=== PATIENT | female | born 1970 | race Caucasian/White ===

== ENCOUNTER → 2017-09-14 15:14 | Outpatient (CLI) | payer BC, SELFPAY ==
[2017-09-14 15:52] LABS: Basophils % 0.4 % (0.1-2.0); Eosinophils # 0.3 K/mm3 (0.0-0.4); Eosinophils % 3.3 % (0.1-12.0); Hematocrit 38.1 % (37.0-47.0); Hemoglobin 13.1 g/dL (12.2-16.2); Lymphocytes # 1.7 K/mm3 (0.7-4.5); Lymphocytes % 21.7 K/mm3 (10-50); Mean Corpuscular HGB Conc 34.4 g/dL (31.8-35.4); Mean Corpuscular Hemoglobin 29.1 pg (27.0-31.2); Mean Corpuscular Volume 84.6 fl (81-99); Mean Platelet Volume 7.5 fl (7.4-10.4); Monocytes # 0.6 K/mm3 (0.1-1.0); Monocytes % 7.6 % (1.7-9.3); Neutrophils # 5.1 K/mm3 (1.8-7.8); Platelet Count 299 K/mm3 (142-424); Red Cell Distribution Width 15.9 % (11.5-17.5); White Blood Count 7.7 K/mm3 (4.8-10.8)
[2017-09-14 16:49] LABS: Alanine Aminotransferase 71 U/L (12-78); Albumin Level 3.8 gm/dL (3.4-5.0); Albumin/Globulin Ratio 1.2 (1.1-1.8); Alkaline Phosphatase 60 U/L (46-116); Anion Gap 12.2 mEq/L (5-15); Aspartate Amino Transferase 33 U/L (15-37); Bilirubin,Total 0.3 mg/dL (0.2-1.0); Blood Urea Nitrogen 12 mg/dL (7-18); Calcium 9.3 mg/dL (8.5-10.1); Carbon Dioxide 30 mmol/L (21.0-32.0); Chloride 102 mmol/L (98-107); Creatinine,Serum 0.78 mg/dL (0.55-1.02); Estimated Glomerular Filt Rate 79 ml/min (>60); Ferritin 33 ng/mL (8-388); GFR (African American) 96 ML/MIN (>60); Globulin 3.3 gm/dl (1.3-3.2); Glucose 115 mg/dL (74-106); Potassium 4.2 mmoL/L (3.5-5.1); Sodium 140 mmol/L (136-145); Total Protein,Serum 7.1 gm/dL (6.4-8.2)
[2017-09-16 07:17] LABS: Hep A Ab, IgM Negative (Negative); Hepatitis B Core Antibody IgM Negative (Negative); Hepatitis B Surface Antigen Negative (Negative); Iron 42 ug/dL (27-159); Iron Saturation 12 % (15-55); UIBC 310 ug/dL (131-425)
[2017-09-16 08:28] LABS: Alpha-1-Antitrypsin 142 mg/dL (90-200)
[2017-09-16 15:23] LABS: Ceruloplasmin 26.6 mg/dL (19.0-39.0); Deamidated Gliadin Abs, IgA 5 units (0-19); Deamidated Gliadin Abs, IgG 3 units (0-19); Endomysial IgA Antibody Negative (Negative); Hepatitis C Antibody 0.1 s/co ratio (0.0-0.9); Tissue Transglutaminase IgA Ab <2 U/mL (0-3); Tissue Transglutaminase IgG Ab <2 U/mL (0-5)
[2017-09-16 17:25] LABS: Actin (Smooth Muscle) Antibody 3 Units (0-19); Antinuclear Antibodies, IFA Negative (.); Liver-Kidney Microsomal Ab <1.0 Units (0.0-20.0); Mitochondrial (M2) Antibody <20.0 Units (0.0-20.0)
[2017-09-20 06:23] LABS: ALT (SGPT) P5P 57 IU/L (0-40); Alpha 2-Macroglobulins, Qn 302 mg/dL (110-276); Apolipoprotein A-1 117 mg/dL (116-209); Bilirubin, Total 0.1 mg/dL (0.0-1.2); Fibrosis Score 0.25 (0.00-0.21); Fibrosis Stage F0-F1 (.); GGT 70 IU/L (0-60); Haptoglobin 90 mg/dL (34-200); Necroinflammat Activity Grade A1-Minimal activity (.); Necroinflammat Activity Score 0.32 (0.00-0.17)
[2017-09-21 08:11] LABS: Reticulin IgA Antibody Negative titer (Neg:<1:2.5)
== END ==
PROVIDERS: Visit Provider Nurse Practitioner Acute Care
DX: R94.5 Abnormal results of liver function studies (principal); R10.11 Right upper quadrant pain
CPT/HCPCS: 36415; 80053; 80074; 82103; 82104; 82390; 82728; 83516; 83540; 83550; 85025; 86038; 86255; 86256; 86376

== ENCOUNTER → 2018-02-13 14:34 | Outpatient (POV) | payer BC, SELFPAY | PROVIDERS: Visit Provider Nurse Practitioner Acute Care | DX: Z00.00 Encounter for general adult medical examination without abnormal findings (principal) ==

== ENCOUNTER → 2018-10-23 09:10 | Outpatient (CLI) | payer SELFPAY ==
[2018-10-23 10:29] LABS: Basophils % 0.4 % (0.1-2.0); Eosinophils # 0.2 K/mm3 (0.0-0.4); Eosinophils % 2.2 % (0.1-12.0); Hemoglobin 13.2 g/dL (12.2-16.2); Lymphocytes # 1.2 K/mm3 (0.7-4.5); Lymphocytes % 12.4 % (10-50); Mean Corpuscular HGB Conc 32.2 g/dL (31.8-35.4); Mean Corpuscular Hemoglobin 28.5 pg (27.0-31.2); Mean Corpuscular Volume 88.5 fl (81-99); Mean Platelet Volume 6.9 fl (7.4-10.4); Monocytes # 0.6 K/mm3 (0.1-1.0); Monocytes % 6.3 % (1.7-9.3); Neutrophils # 7.4 K/mm3 (1.8-7.8); Neutrophils % 78.7 % (37.0-80.0); Platelet Count 463 K/mm3 (142-424); Red Blood Count 4.63 M/mm3 (4.20-5.40); Red Cell Distribution Width 14.4 % (11.5-17.5); White Blood Count 9.5 K/mm3 (4.8-10.8)
[2018-10-23 11:27] LABS: Alanine Aminotransferase 46 U/L (12-78); Albumin Level 2.6 gm/dL (3.4-5.0); Albumin/Globulin Ratio 0.6 (1.1-1.8); Alkaline Phosphatase 125 U/L (46-116); Anion Gap 11.3 mEq/L (5-15); Aspartate Amino Transferase 33 U/L (15-37); Bilirubin,Total 0.4 mg/dL (0.2-1.0); Blood Urea Nitrogen 5 mg/dL (7-18); Calcium 9.2 mg/dL (8.5-10.1); Carbon Dioxide 32 mmol/L (21.0-32.0); Chloride 99 mmol/L (98-107); Chol/HDL Ratio 5.2 (1-3.5); Cholesterol 152 mg/dL (140-200); Creatinine,Serum 0.67 mg/dL (0.55-1.02); Estimated Glomerular Filt Rate 94 ml/min (>60); GFR (African American) 114 ML/MIN (>60); Globulin 4.1 gm/dl (1.3-3.2); Glucose 167 mg/dL (74-106); HDL Cholesterol 29 mg/dL (29-89); LDL Cholesterol 77 mg/dL (0-130); Potassium 4.3 mmoL/L (3.5-5.1); Sodium 138 mmol/L (136-145); Total Protein,Serum 6.7 gm/dL (6.4-8.2); Triglycerides 232 mg/dL (30-200); VLDL Cholesterol 46 mg/dL (0-40)
[2018-10-23 11:40] LABS: C-Reactive Protein 7.4 mg/dL (0.0-0.9)
[2018-10-23 13:11] LABS: Erythrocyte Sedimentation Rate 38 mm/hr (0-20)
[2018-10-24 06:51] LABS: Vitamin D 25 Hydroxy 19.6 ng/mL (30.0-100.0)
== END ==
PROVIDERS: Internal Medicine Infectious Disease; Visit Provider Internal Medicine Rheumatology
DX: E55.9 Vitamin D deficiency, unspecified (principal); M06.9 Rheumatoid arthritis, unspecified; Z79.899 Other long term (current) drug therapy
CPT/HCPCS: 36415; 80053; 80061; 82652; 85025; 85651; 86140

== ENCOUNTER → 2018-10-30 11:55 | Outpatient (CLI) | payer SELFPAY ==
[2018-10-30 12:06] LABS: Basophils # 0.1 K/mm3 (0-0.2); Basophils % 1.3 % (0.1-2.0); Eosinophils # 0.2 K/mm3 (0.0-0.4); Hematocrit 40.6 % (37.0-47.0); Hemoglobin 13.1 g/dL (12.2-16.2); Lymphocytes # 1.3 K/mm3 (0.7-4.5); Mean Corpuscular HGB Conc 32.3 g/dL (31.8-35.4); Mean Corpuscular Hemoglobin 28.9 pg (27.0-31.2); Mean Corpuscular Volume 89.8 fl (81-99); Mean Platelet Volume 8.6 fl (7.4-10.4); Monocytes # 0.3 K/mm3 (0.1-1.0); Neutrophils # 4.3 K/mm3 (1.8-7.8); Neutrophils % 69.7 % (37.0-80.0); Platelet Count 392 K/mm3 (142-424); Red Blood Count 4.52 M/mm3 (4.20-5.40); Red Cell Distribution Width 14.6 % (11.5-17.5); White Blood Count 6.2 K/mm3 (4.8-10.8)
[2018-10-30 12:21] LABS: Alanine Aminotransferase 29 U/L (12-78); Albumin/Globulin Ratio 0.7 (1.1-1.8); Alkaline Phosphatase 99 U/L (46-116); Anion Gap 13.2 mEq/L (5-15); Aspartate Amino Transferase 28 U/L (15-37); Bilirubin,Total 0.3 mg/dL (0.2-1.0); Blood Urea Nitrogen 11 mg/dL (7-18); C-Reactive Protein 2.9 mg/dL (0.0-0.9); Calcium 9.3 mg/dL (8.5-10.1); Carbon Dioxide 29 mmol/L (21.0-32.0); Chloride 100 mmol/L (98-107); Creatinine,Serum 0.88 mg/dL (0.55-1.02); Estimated Glomerular Filt Rate 69 ml/min (>60); GFR (African American) 83 ML/MIN (>60); Globulin 4.4 gm/dl (1.3-3.2); Glucose 223 mg/dL (74-106); Potassium 4.2 mmoL/L (3.5-5.1); Sodium 138 mmol/L (136-145); Total Protein,Serum 7.4 gm/dL (6.4-8.2)
[2018-10-30 12:31] LABS: Erythrocyte Sedimentation Rate 69 mm/hr (0-20)
== END ==
PROVIDERS: Visit Provider Internal Medicine Infectious Disease
DX: N10 Acute pyelonephritis (principal); N13.6 Pyonephrosis; B96.29 Other Escherichia coli [E. coli] as the cause of diseases classified elsewhere; B95.1 Streptococcus, group B, as the cause of diseases classified elsewhere; N17.8 Other acute kidney failure; R94.5 Abnormal results of liver function studies; R19.7 Diarrhea, unspecified; M06.9 Rheumatoid arthritis, unspecified; Z92.25 Personal history of immunosuppression therapy
CPT/HCPCS: 36415; 80053; 85025; 85651; 86140

== ENCOUNTER 2020-11-15 16:11 | Emergency (ER) | payer OTHER, SELFPAY ==
[2020-11-15 16:19] VITALS: BP 137/86; PULSE 105; RESP 20; TEMP 36.8; O2SAT 93; BMI 30.7
--- NOTE | 2020-11-15 16:26 | HMH.EDGENADL ---
ED Disposition Clinical Impression: Buerger's disease Rheumatoid arthritis Qualifiers: Rheumatoid arthritis location: multiple sites Rheumatoid factor presence: unspecified presence Qualified Code(s): M06.9 - Rheumatoid arthritis, unspecified Disposition: Home, Self-Care Condition on Discharge: Fair Additional Instructions: Prednisone as prescribed. [place] as needed for pain. 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 Additional instructions for CONTROLLED SUBSTANCES: You have been prescribed a medication that is a controlled substance. Controlled substances include pain medications known as opiates and sedative nerve medications known as benzodiazepines. Tramadol, fioricet, and gabapentin are also controlled substances. Some common opiates include: Codeine (such as Tylenol #3) Hydrocodone (Vicodin, Lortab, Lorcet, [place]) Oxycodone (Percocet, Percodan, Oxycodone, Oxy IR) Some common benzodiazepines include: Diazepam (Valium) Lorazepam (Ativan) Alprazolam (Xanax) Clonazepam (Klonopin) Oxazepam (Serax) All of these controlled substances are highly addictive and frequently abused. Misuse can and frequently does lead to addiction as well as overdose and . Medication should be stored in a locked cabinet or other secure storage unit. Do not store the medication in a motor vehicle. Short term supplies, 3 days or less, are prescribed because of the highly addictive nature of the medication. Any of the controlled substance medication NOT taken should be disposed of properly and NOT SAVED. The recommended method of disposing of unused medications is: Place the medicines in a sealable plastic bag. If the medicine is a solid, crush it or add water to dissolve it. Add something undesirable (cat litter, coffee grounds, etc.) Dispose of sealed bag in household trash Do not flush or pour unused medicines down a sink or drain. Controlled substances should not be shared, given away or sold. Because of the addictive nature and frequent abuse, these medications are sometimes stolen. These medications should be kept in a safe place where they cannot be stolen. Do not keep them in your car or purse. Lost or stolen prescriptions for controlled substances WILL NOT BE REFILLED in this emergency department, regardless of whether a police report was filed. Prescriptions: Hydrocod/Acet 5/325 mg [[place] 5/325mg tablet] 1 tab PO Q6HP PRN #10 tab PRN Reason: Pain Transmission Status: Sent to [facility] # predniSONE [Prednisone 20mg Tab] 60 mg PO DAILY #15 tab Transmission Status: Pending to [facility] # Referrals: Provider,Referral, [Referring] - - Critical Care Critical Care Time: No Attestation: On 11/15/20, the high probability of a clinically significant, sudden or life threatening deterioration of the following system(s) required my full and direct attention, intervention and personal management. The time I documented below is in addition to time spent performing reported procedures but includes the following listed in this critical care notation. Medical Decision Making - Donato Inquiry Pt receiving controlled substance: Yes Donato was queried for this patient: Yes Risks and benefits of using a controlled substance: were not discussed with pt by me Vital Signs: 11/15/20 16:19 Temperature 98.3 F Temperature Source Oral Pulse Rate [Left Radial] 105 H Respiratory Rate 20 Blood Pressure [Right Arm] 137/86 Blood Pressure Mean [Right Arm] 103 Blood Pressure Source [Right Arm] Automatic Cuff Blood Pressure Position [Right Arm] Supine 02 Sat by Pulse Oximetry 93 L Oxygen Delivery Method Room Air - Lab Data Lab Results 11/15/20 16:50: WBC 7.3, RBC 4.68, Hgb 13.9, Hct 41.1, MCV 87.6, MCH 29.7, MCHC 33.9, RDW 15.8, Plt Count 425 H, MPV 8.2, Neut % (Auto) 82.1 H, Lymph % (Auto) 9.4 L, [place] % (Auto) 5.8, Eos % (Auto) 1.5, Baso % (Auto) 1
[2020-11-15 16:59] LABS: Basophils # 0.1 K/mm3 (0-0.2); Basophils % 1.2 % (0.1-2.0); Eosinophils # 0.1 K/mm3 (0.0-0.4); Eosinophils % 1.5 % (0.1-12.0); Hematocrit 41.1 % (37.0-47.0); Hemoglobin 13.9 g/dL (12.2-16.2); Lymphocytes # 0.7 K/mm3 (0.7-4.5); Lymphocytes % 9.4 % (10-50); Mean Corpuscular HGB Conc 33.9 g/dL (31.8-35.4); Mean Corpuscular Hemoglobin 29.7 pg (27.0-31.2); Mean Corpuscular Volume 87.6 fl (81-99); Mean Platelet Volume 8.2 fl (7.4-10.4); Monocytes # 0.4 K/mm3 (0.1-1.0); Monocytes % 5.8 % (1.7-9.3); Neutrophils % 82.1 % (37.0-80.0); Platelet Count 425 K/mm3 (142-424); Red Blood Count 4.68 M/mm3 (4.20-5.40); Red Cell Distribution Width 15.8 % (11.5-17.5); White Blood Count 7.3 K/mm3 (4.8-10.8)
[2020-11-15 17:10] LABS: Alanine Aminotransferase 21 U/L (12-78); Albumin Level 3.3 g/dl (3.5-5.0); Albumin/Globulin Ratio 1.1 (1.1-1.8); Alkaline Phosphatase 76 U/L (38-126); Anion Gap 9.7 mEq/L (5-15); Aspartate Amino Transferase 30 U/L (14-36); Bilirubin,Total 0.6 mg/dl (0.2-1.3); Blood Urea Nitrogen 13 mg/dl (7-17); Calcium 8.9 mg/dl (8.4-10.2); Carbon Dioxide 29 mmol/L (22.0-30.0); Chloride 98 mmol/L (98-107); Creatinine Clearance Estimated 195 mL/min (50-200); Estimated Glomerular Filt Rate 131 ml/min (>60); GFR (African American) 158 ML/MIN (>60); Globulin 2.9 g/dL (1.3-3.2); Glucose 298 mg/dl (74-100); Potassium 3.7 mmoL/L (3.5-5.1); Sodium 133 mmol/L (136-145); Total Protein,Serum 6.2 g/dl (6.3-8.2)
[2020-11-15 17:11] VITALS: BP 175/93; PULSE 88; RESP 15; O2SAT 97
[2020-11-15 17:15] LABS: C-Reactive Protein 88.8 mg/L (0-4)
[2020-11-15 17:20] LABS: Erythrocyte Sedimentation Rate 25 mm/hr (0-20)
[2020-11-15 17:30] VITALS: BP 180/97; PULSE 92; RESP 13; O2SAT 97
[2020-11-15 17:48] LABS: Coronavirus 19, PCR Not Detected (NotDetected); Influenza A, PCR Not Detected (NotDetected); Influenza B, PCR Not Detected (NotDetected)
[2020-11-15 18:00] VITALS: BP 179/98; PULSE 94; RESP 15; O2SAT 98
[2020-11-15 18:00] LABS: Strep Scrn Group A (Rapid) Negative (Negative)
[2020-11-15 18:30] VITALS: BP 174/94; PULSE 91; RESP 16; O2SAT 97
[2020-11-15 18:54] VITALS: BP 161/95; PULSE 72; RESP 18; TEMP 36.4; O2SAT 98
== END 2020-11-15 18:57 | disposition home or self-care (01) ==
PROVIDERS: Emergency Provider Emergency Medicine; PCP Family Medicine
DX: I73.1 Thromboangiitis obliterans [Buerger's disease] (principal); M06.9 Rheumatoid arthritis, unspecified; L97.329 Non-pressure chronic ulcer of left ankle with unspecified severity; L97.319 Non-pressure chronic ulcer of right ankle with unspecified severity
CPT/HCPCS: 80053; 85025; 85651; 86140; 87430; 96375; 96376; 99283; C9803; J2405; U0003; U0005

== ENCOUNTER 2020-11-24 12:12 | Emergency (ER) | payer OTHER, SELFPAY ==
[2020-11-24 12:12] VITALS: BP 147/92; PULSE 100; RESP 20; TEMP 36.6; O2SAT 97; BMI 30.7
--- NOTE | 2020-11-24 12:20 | HMH.EDGENADL ---
ED Disposition Clinical Impression: Buerger disease Diabetic foot ulcer Qualifiers: Diabetic foot ulcer location: midfoot Diabetes mellitus type: type 2 Laterality: unspecified laterality Non-pressure ulcer stage: with fat layer exposed Qualified Code(s): E11.621 - Type 2 diabetes mellitus with foot ulcer Disposition: Home, Self-Care Condition on Discharge: Good Additional Instructions: It is important to follow-up with your primary care physician, as well as to follow-up with your vascular doctor and your rheumatologic doctor. Frequent deep the wound well wrapped, please continue to monitor it and return to the emergency department or follow-up with your primary care physician if it continues to worsen. Prescriptions: Gabapentin [Gabapentin 100mg Cap] 300 mg PO BID 14 Days #84 cap Transmission Status: Received by [facility] #[id number] predniSONE [Prednisone 20mg Tab] 20 mg PO DAILY 7 Days #7 tab Transmission Status: Received by [facility] #[id number] Referrals: Provider,Referral, [Referring] - - Critical Care Critical Care Time: No Attestation: On 11/24/20, the high probability of a clinically significant, sudden or life threatening deterioration of the following system(s) required my full and direct attention, intervention and personal management. The time I documented below is in addition to time spent performing reported procedures but includes the following listed in this critical care notation. Medical Decision Making - Medical Records Medical records reviewed: Yes: I reviewed the patient's medical records. - Donato Inquiry Pt receiving controlled substance: Yes Donato was queried for this patient: Yes Risks and benefits of using a controlled substance: were discussed with pt by me Vital Signs: 11/24/20 12:12 11/24/20 13:19 11/24/20 13:30 Temperature 97.8 F Temperature Source Oral Pulse Rate 88 102 H Pulse Rate [Right Radial] 100 H Respiratory Rate 20 Blood Pressure 127/66 134/85 Blood Pressure [Right Arm] 147/92 H Blood Pressure Mean Blood Pressure Mean [Right Arm] 110 Blood Pressure Source [Right Arm] Automatic Cuff Blood Pressure Position [Right Arm] Sitting 02 Sat by Pulse Oximetry 97 96 96 Oxygen Delivery Method Room Air 11/24/20 14:00 11/24/20 18:23 11/24/20 18:30 Temperature 97.8 F Temperature Source Pulse Rate 110 H 107 H 98 H Pulse Rate [Right Radial] Respiratory Rate 18 Blood Pressure 139/94 H 131/91 H 131/91 H Blood Pressure [Right Arm] Blood Pressure Mean 108 Blood Pressure Mean [Right Arm] Blood Pressure Source [Right Arm] Blood Pressure Position [Right Arm] 02 Sat by Pulse Oximetry 97 97 Oxygen Delivery Method Room Air - Lab Data Lab Results 11/24/20 14:35: WBC 13.3 H, RBC 5.35, Hgb 15.6, Hct 49.2 H, MCV 92.1, MCH 29.2, MCHC 31.7 L, RDW 15.7, Plt Count 516 H, MPV 7.8, Neut % (Auto) 87.3 H, Lymph % (Auto) 7.9 L, [place] % (Auto) 3.1, Eos % (Auto) 0.8, Baso % (Auto) 0.9, Neut # (Auto) 11.6 H, Lymph # (Auto) 1.1, [place] # (Auto) 0.4, Eos # (Auto) 0.1, Baso # (Auto) 0.1, Total Counted 100, Neutrophils % (Manual) 79 H, Lymphocytes % (Manual) 12, Monocytes % (Manual) 9, Platelet Estimate Normal, Hypochromasia 2+ 11/24/20 14:35: Sodium 128 L, Potassium 3.9, Chloride 85 L, Carbon Dioxide 30, Anion Gap 16.9 H, BUN 13, Creatinine 0.50 L, Estimated Creat Clear 195, Estimated GFR 131, Est GFR ( Amer) 158, Glucose 687 H*, Calcium 9.3 Result diagrams: 11/24/20 14:35 11/24/20 14:35 Orders (Tests/Meds): ED MEDICATIONS Discontinued Medications Generic Name Dose Route Start Last Admin Trade Name Maikol PRN Reason Stop Dose Admin Hydrocodone Bitart/Acetaminophen 1 tab 11/24/20 14:25 11/24/20 14:33 Hydrocodone/Apap 5/325 Mg Tablet PO 11/24/20 14:26 1 tab ONCE ONE Administration Dexamethasone 10 mg 11/24/20 14:25 11/24/20 14:30 Dexamethasone 1mg/1ml Intensol 10ml Udc (Er) PO 11/24/20 14:26
--- NOTE | 2020-11-24 12:45 | XR_ITS ---
PROCEDURE: XR FOOT RT 2V CR XR ANKLE RT 2V CR XR FOOT LT 2V CR XR ANKLE LT 2V CLINICAL INDICATION: pain COMPARISON: CR XR ANKLE RT 2V from 11/24/2020 CR XR FOOT LT 2V from 11/24/2020 CR XR ANKLE LT 2V from 11/24/2020 FINDINGS: Right foot: No fracture or dislocation. No lytic or blastic change. Small calcaneal spur and Achilles enthesophyte. Mild ill definition of the anterior aspect of the calcaneal spur. Left foot: No fracture or dislocation. No lytic or blastic change. Small calcaneal spur and Achilles enthesophyte. Left ankle: No acute finding. Right ankle: Negative, no acute finding IMPRESSION: Small bilateral calcaneal spurs. No fracture or dislocation. No lytic or blastic change. There is some ill definition of the anterior aspect of the right calcaneal spur which could be seen with plantar fasciitis. Dictated by: Delon Her MD 11/24/2020 13:25 Delon Her MD in [facility] 11/24/2020 13:25
--- NOTE | 2020-11-24 12:52 | PC.NURSE ---
pt to rad
--- NOTE | 2020-11-24 13:05 | PC.NURSE ---
Rad just left bedside
[2020-11-24 13:19] VITALS: BP 127/66; PULSE 88; O2SAT 96
[2020-11-24 13:30] VITALS: BP 134/85; PULSE 102; O2SAT 96
[2020-11-24 14:00] VITALS: BP 139/94; PULSE 110; O2SAT 97
[2020-11-24 14:49] LABS: Basophils # 0.1 K/mm3 (0-0.2); Basophils % 0.9 % (0.1-2.0); Eosinophils # 0.1 K/mm3 (0.0-0.4); Eosinophils % 0.8 % (0.1-12.0); Hematocrit 49.2 % (37.0-47.0); Hemoglobin 15.6 g/dL (12.2-16.2); Lymphocytes # 1.1 K/mm3 (0.7-4.5); Lymphocytes % 7.9 % (10-50); Mean Corpuscular HGB Conc 31.7 g/dL (31.8-35.4); Mean Corpuscular Hemoglobin 29.2 pg (27.0-31.2); Mean Corpuscular Volume 92.1 fl (81-99); Mean Platelet Volume 7.8 fl (7.4-10.4); Monocytes # 0.4 K/mm3 (0.1-1.0); Monocytes % 3.1 % (1.7-9.3); Neutrophils # 11.6 K/mm3 (1.8-7.8); Neutrophils % 87.3 % (37.0-80.0); Platelet Count 516 K/mm3 (142-424); Red Blood Count 5.35 M/mm3 (4.20-5.40); Red Cell Distribution Width 15.7 % (11.5-17.5); White Blood Count 13.3 K/mm3 (4.8-10.8)
[2020-11-24 14:52] LABS: MANUAL DIFFERENTIAL MANUAL DIFFERENTIAL (MANUAL DIFF)
[2020-11-24 15:08] LABS: Chloride 85 mmol/L (98-107); Potassium 3.9 mmoL/L (3.5-5.1); Sodium 128 mmol/L (136-145)
[2020-11-24 15:11] LABS: Anion Gap 16.9 mEq/L (5-15); Blood Urea Nitrogen 13 mg/dl (7-17); Calcium 9.3 mg/dl (8.4-10.2); Carbon Dioxide 30 mmol/L (22.0-30.0); Creatinine Clearance Estimated 195 mL/min (50-200); Estimated Glomerular Filt Rate 131 ml/min (>60); GFR (African American) 158 ML/MIN (>60)
[2020-11-24 15:23] LABS: Glucose 687 mg/dl (74-100)
--- NOTE | 2020-11-24 15:23 | PC.NURSE ---
Spoke with Fei in the lab, reported a glucose of 687. notified.
[2020-11-24 15:31] LABS: Hypochromasia 2+; Lymphocytes % 12 % (10-50); Monocytes % 9 % (2-9); Neutrophils % 79 % (42-76); Platelet Estimate Normal; Total Cells Counted 100
--- NOTE | 2020-11-24 16:57 | PC.NURSE ---
DAINA CAME FROM WOUND CARE FOR ASSESSMENT
[2020-11-24 18:23] VITALS: BP 131/91; PULSE 107; O2SAT 97
[2020-11-24 18:30] VITALS: BP 131/91; PULSE 98; RESP 18; TEMP 36.6; O2SAT 94
== END 2020-11-24 18:31 | disposition home or self-care (01) ==
PROVIDERS: Emergency Provider Emergency Medicine; PCP Family Medicine
DX: I73.1 Thromboangiitis obliterans [Buerger's disease] (principal); E11.621 Type 2 diabetes mellitus with foot ulcer; Z79.4 Long term (current) use of insulin; I10 Essential (primary) hypertension; Z88.2 Allergy status to sulfonamides
CPT/HCPCS: 73600; 73620; 80048; 85007; 85025; 99282